=== PATIENT | male | born 1990 | race Caucasian/White ===

== ENCOUNTER 2025-05-13 16:51 | Emergency (ER) | payer OTHER ==
[~2025-05-13] VITALS: Ht 177.8 cm; Wt 106.8 kg
[2025-05-13 17:24] LABS: INFLUENZA TYPE A ANTIGEN RAPID NEGATIVE (Negative); INFLUENZA TYPE B ANTIGEN RAPID NEGATIVE (Negative)
[2025-05-13] MEDS ORDERED: ketorolac trometh 15mg/ml vial 15 MG/ML ML IM ONE (17:25)
--- NOTE | 2025-05-13 17:28 | Physician Documentation ---
History of Present Illness ~ Chief Complaint: Flu Symptoms Stated Complaint: FLU SYMPTOMS Time Seen by MD: 17:20 HPI Otherwise healthy 34-year-old male who presents to the emergency department two day history of fever, myalgias and rigors with little cough. No prior history of the same. No recent travels or hospitalizations. No known ill contacts. No nausea or vomiting diarrhea or rash. Medication Reconciliation Allergies: Coded Allergies: No Known Allergies (Unverified , 05/13/25) Scheduled Ibuprofen* (Motrin*), 400 MG PO Q6H Review of Systems All Other Systems at this time: Reviewed and Negative ROS See HPI Physical Exam Vital Signs: RN Vital Signs have been reviewed: Yes, Temperature: 99.5, Source: Oral, Heart Rate: 84, Respiratory Rate: 16, BP: 133/86, Pulse Oximetry: 95, Weight: 106.800 Oxygen Flow Rate: 0 General Appearance: alert, WD/WN, moderate distress Eyes: normal inspection Ears: auricle normal Nose: normal inspection Oropharynx: normal inspection Neck: non-tender; No: meningeal signs Chest: no accessory muscle use Cardiovascular: normal peripheral pulses Gastrointestinal: non-tender Extremities: normal range of motion Back: normal inspection Skin: normal color Neurologic: oriented x4 Psychiatric: normal mood/affect Lymphatic: no adenopathy Progress Results/Orders Results/Orders Completed Orders - VENKAT MOON Ketorolac Trometh 30mg/Ml Vial (Toradol (05/13/25 17:30) Vital Signs 05/13/25 05/13/25 05/13/25 16:55 19:13 19:22 Temp 99.5 98.6 Pulse 84 82 Resp 16 18 18 B/P (MAP) 133/86 130/86 Pulse Ox 95 99 O2 Flow Rate 0 Laboratory Tests Test 05/13/25 16:52 Influenza Type A Antigen Negative Influenza Type B Antigen Negative SARS-CoV-2 Antigen (Rapid) Negative Medical Decision Making Additional information obtaine: N/A Findings Examination history consistent with a viral syndrome we will go ahead and screen for influenza a, influenza B and COVID. We will provide Toradol for mitigation of rigors and myalgias. Patient awaiting reassessment and results of screening test. Differential Dx:Considerations: Include: Dehydration, Electrolyte imbalance, Influenza, Meningitis, Pneumonia, Pneumonitis, Sepsis, Viral Syndrome Departure Disposition: HOME / SELF CARE / HOMELESS Impression: Primary Impression: Viral infection Condition: Improved Discharge Instructions: Viral Illness Additional Instructions: Please continue with ibuprofen and/or Tylenol for body aches or discomfort. Your influenza and COVID screening today he has reassuring negative. Please make follow up appointment with the primary care physician and to return to the emergency department if symptoms worsen. Thank you for visiting [facility]. Referrals: NO PRIMARY CARE PROVIDER (PCP) Prescriptions Ibuprofen* (Motrin*) 400 Mg Tablet 400 MG PO Q6H for 10 Days, #30 TAB Prov: VENKAT MOON 05/13/25 Education Educated: Patient Educated regarding: diagnosis, treatment, prognosis, need for follow up Signature Scribe Signature: . Attestation: . VENKAT MOON PAC May 13, 2025 17:28
[2025-05-13] MEDS ORDERED: IBUP-1984 PO (18:42)
[2025-05-13] MEDS: ketorolac trometh 30MG/ML vial 30 MG/ML VIAL IM ONE (19:13)
[2025-05-13 19:22] VITALS: BP 130/86; PULSE 82; RESP 18; TEMP 98.6; O2SAT 99
== END 2025-05-13 19:23 | disposition home or self-care (01) ==
LOC: ER 16:52
DX: B34.9 Viral infection, unspecified (principal); Z79.899 Other long term (current) drug therapy; Z20.822 Contact with and (suspected) exposure to COVID-19
CPT/HCPCS: 36415; 87804; 87811; 96372; 99283; J1885